=== PATIENT | female | born 1985 | race Caucasian/White ===

== ENCOUNTER 2016-12-04 19:43 | Emergency (ER) | payer OTHER ==
[2016-12-04 21:51] LABS: HEMOGLOBIN 14.9 gm/dl (12.3-15.3); RED BLOOD COUNT 4.79 M/UL (4.00-5.10); WHITE BLOOD COUNT 8.5 K/UL (4.5-11.0)
[2016-12-04 22:12] LABS: BUN/CREATININE RATIO 50 (0-10)
== END 2016-12-05 02:58 | disposition home or self-care (01) ==
LOC: ER1 19:43
PROVIDERS: Student in an Organized Health Care Education/Training Program
DX: R55 Syncope and collapse (principal); S00.81XA Abrasion of other part of head, initial encounter; K64.4 Residual hemorrhoidal skin tags; Z88.1 Allergy status to other antibiotic agents; Z90.49 Acquired absence of other specified parts of digestive tract
CPT/HCPCS: 36415; 70450; 71010; 73522; 80053; 81001; 82272; 82550; 82553; 83690; 83874; 84484; 85025; 85610; 85730; 87086; 93005; 96360; 99284; J2270; J2405